=== PATIENT | male | born 1950 | race Caucasian/White ===

== ENCOUNTER 2017-09-05 21:36 | Emergency (ER) | payer BC, MEDICARE ==
[2017-09-05 22:25] LABS: ABSOLUTE BASOPHILS # (AUTO) 0.1 10^3/uL (0.0-0.2); ABSOLUTE EOSINOPHILS # (AUTO) 0.3 10^3/uL (0.0-0.6); ABSOLUTE LYMPHOCYTES (AUTO) 1.8 10^3/uL (0.5-4.7); ABSOLUTE MONOCYTES (AUTO) 1.7 10^3/uL (0.1-1.4); ABSOLUTE NEUT (AUTO) 5.6 10^3/uL (1.7-8.2); EOSINOPHILS % (AUTO) 2.9 % (0-6); HEMATOCRIT 41.8 % (37.9-51.0); HEMOGLOBIN 14.1 g/dL (13.5-17.0); MEAN CORPUSCULAR HEMOGLOBIN 29.9 pg (27.0-33.4); MEAN CORPUSCULAR HGB CONC 33.7 g/dL (32.0-36.0); MEAN CORPUSCULAR VOLUME 89 fl (80-97); MONOCYTES % (AUTO) 18.2 % (3-13); PLATELET COUNT 211 10^3/uL (150-450); RED BLOOD COUNT 4.71 10^6/uL (4.35-5.55); RED CELL DISTRIBUTION WIDTH 15.8 % (11.5-14.0); SEGMENTED NEUTROPHILS % (AUTO) 58.9 % (42-78); TOTAL CELLS COUNTED % (AUTO) 100 %; WHITE BLOOD COUNT 9.5 10^3/uL (4.0-10.5)
[2017-09-05 22:40] LABS: ALANINE AMINOTRANSFERASE 45 U/L (21-72); ALBUMIN 4.2 g/dL (3.5-5.0); ALKALINE PHOSPHATASE 141 U/L (38-126); ANION GAP 11 (5-19); ASPARTATE AMINO TRANSFERASE 32 U/L (17-59); BILIRUBIN,DIRECT 0.1 mg/dL (0.0-0.4); BILIRUBIN,TOTAL 0.3 mg/dL (0.2-1.3); BLOOD UREA NITROGEN 22 mg/dL (7-20); CALCIUM 9.5 mg/dL (8.4-10.2); CARBON DIOXIDE 23 mmol/L (22-30); CHLORIDE 102 mmol/L (98-107); CREATINE KINASE 138 U/L (55-170); GLUCOSE 137 mg/dL (75-110); POTASSIUM 4.1 mmol/L (3.6-5.0); TOTAL PROTEIN 6.8 g/dL (6.3-8.2)
--- NOTE | 2017-09-05 22:41 | RADIOLOGY REPORT (SQ) ---
EXAM DESCRIPTION: CHEST PA/LAT COMPLETED DATE/TIME: 09/05/2017 10:32 pm REASON FOR STUDY: cough COMPARISON: None. EXAM PARAMETERS: NUMBER OF VIEWS: two views TECHNIQUE: Digital Frontal and Lateral radiographic views of the chest acquired. RADIATION DOSE: NA LIMITATIONS: none FINDINGS: LUNGS AND PLEURA: No consolidation, pneumothorax or pleural effusion. MEDIASTINUM AND HILAR STRUCTURES: No masses or contour abnormalities. HEART AND VASCULAR STRUCTURES: Heart normal size. No evidence for failure. BONES: No acute findings. Suture anchors are noted right shoulder. HARDWARE: None in the chest. IMPRESSION: No acute radiographic finding in the chest. TECHNICAL DOCUMENTATION: JOB ID: [id number] 2010 [employer]- All Rights Reserved
[2017-09-05 22:54] LABS: CREATINE KINASE MB 0.86 ng/mL (<4.55); TROPONIN I < 0.012 ng/mL
--- NOTE | 2017-09-05 23:20 | ER Document Report ---
ED General - General Chief Complaint: Passed Out Prior to Arrival Stated Complaint: COUGH Time Seen by Provider: 09/05/17 23:06 Notes: Patient is a 67-year-old male who presents with complaint of syncopal episode occurred while coughing. Patient says he was coughing and having severe coughing fit where he passed out and says he started having tremor into his hands. She says this lasts only 5 seconds. She said when he woke up he was not confused and was back to his normal self. No history of seizures. Patient has had a cough for several day's. He says it is nonproductive. He says he has not had any significant congestion. He is unsure if he has been wheezing. Patient's does mention that he has had an intermittent cough now for approximately a year. Patient is on lisinopril. He is a former smoker. He quit smoking proximally 15-20 years ago. He says he does not think he has had a fever. He said he checked his temperature earlier in his temp might of been 100 at home. He did see his doctor 2 days ago. He received a pneumonia shot. No vomiting. No diarrhea. He does have a mild headache. No other complaints at this time. TRAVEL OUTSIDE OF THE [place] IN LAST 30 DAYS: No - Related Data Allergies/Adverse Reactions: No Known Allergies Allergy (Verified 09/05/17 22:01) Past Medical History - Social History Smoking Status: Former Smoker Frequency of alcohol use: None Drug Abuse: None Family History: Reviewed & Not Pertinent Patient has suicidal ideation: No Patient has homicidal ideation: No - Past Medical History Cardiac Medical History: Reports: Hx Hypercholesterolemia, Hx Hypertension - LISINOPRIL Denies: Hx Heart Attack Pulmonary Medical History: Denies: Hx Asthma Neurological Medical History: Denies: Hx Cerebrovascular Accident, Hx Seizures Renal/ Medical History: Denies: Hx Peritoneal Dialysis GI Medical History: Denies: Hx Hepatitis, Hx Hiatal Hernia, Hx Ulcer Infectious Medical History: Denies: Hx Hepatitis Past Surgical History: Denies: Hx Open Heart Surgery, Hx Pacemaker - Immunizations Hx Diphtheria, Pertussis, Tetanus Vaccination: No Review of Systems - Review of Systems Notes: My Normal Review Basic REVIEW OF SYSTEMS: CONSTITUTIONAL : Coughing type illness. EENT: Denies eye, ear, throat, or mouth pain or symptoms. Denies nasal or sinus congestion. CARDIOVASCULAR: Denies chest pain. RESPIRATORY: Current coughing. GASTROINTESTINAL: Denies abdominal pain. Denies nausea, vomiting, or diarrhea. Denies constipation. Last BM: MUSCULOSKELETAL: Denies neck or back pain or joint pain or swelling. SKIN: Denies rash or skin lesions. NEUROLOGICAL: Equal episode mild headache. Denies weakness or paralysis or loss of use of either side. Denies problems with gait or speech. Denies sensory or motor loss. ALL OTHER SYSTEMS REVIEWED AND NEGATIVE. Physical Exam - Vital signs Vitals: Temp Pulse Resp BP Pulse Ox 98.7 F 80 20 153/91 H 94 09/05/17 21:37 09/05/17 21:37 09/05/17 21:37 09/05/17 21:37 09/05/17 21:37 - Notes Notes: General Appearance: Well nourished, alert, cooperative, no acute distress, no obvious discomfort. Well-appearing. Vitals: reviewed, See vital signs table. Head: no swelling or tenderness to the head Eyes: PERRL, EOMI, Conjuctiva clear Mouth: No decreasd moisture Throat: No tonsillar inflammation, No airway obstruction, No lymphadenopathy Neck: Supple, no neck tenderness, No thyromegaly Lungs: No wheezing, No rales, No rhonci, No accessory muscle use, good air exchange bilaterally. Heart: Normal rate, Regular rythm, No murmur, no rub Chest wall: Mild pain to palpation over the lower ribs which patient says hurts from coughing. Abdomen: Normal BS, soft, No rigidity, No abdominal tenderness, No guarding, no rebound, no abdominal masses, no organomegaly Extremities: strength 5/5 in all extremities, good pulses in all extremities, no swelling or tenderness in the extremities, no edema. Skin: warm, dry, appropriate color, no rash Neuro: speech clear, oriented x 3, normal affect, responds appropriately to questions. Renal nerves II through XII are intact. Distal sensation intact. Patient moves all extremities without difficulty. Course - Re-evaluation Re-evalutation: 09/06/17 01:17 Patient's repeat EKG shows that he is in sinus rhythm. I talked the patient is about him going into atrial flutter. Patient says he thinks has been in it once before. Patient has no chest pain. He did not ever have any chest pain during this process. His cardiac enzymes are negative. Clinically looks very well. His history and symptoms seem very consistent with that of post tussive syncope. I suspect he probably does have some underlying bronchitis currently. I will place him on prednisone and given albuterol inhaler; however , also discussed with him that I think his recurrent coughing is probably also potentially related to lisinopril. I suspect this because the patient has been having this recurrent coughing fits for approximately 1 year. He is currently on lisinopril with hydrochlorothiazide. I will prescribe hydrochlorothiazide alone and have him stop lisinopril. I informed him to keep a log of his blood pressures over the next week after stopping lisinopril to make sure that something does not have to be added and replaced of this. Informed him he must return to ER immediately if he has chest pain, difficulty breathing, recurrent episode of passing out, or if she feels unwell. I encouraged him follow-up with his doctor on Sunday for reevaluation. Patient and agree with plan and he will be discharged home. Dictation of this chart was performed using voice recognition software; therefore, there may be some unintended grammatical errors. - Vital Signs Vital signs: Temp Pulse Resp BP Pulse Ox 98.7 F 92 18 128/76 H 95 09/05/17 21:45 09/05/17 21:45 09/05/17 23:09 09/05/17 23:08 09/05/17 23:09 - Laboratory Result Diagrams: 09/05/17 22:10 09/05/17 22:10 Laboratory results interpreted by me: 09/05/17 09/05/17 22:10 22:10 RDW 15.8 H Monocytes % 18.2 H Absolute Monocytes 1.7 H Sodium 136.0 L BUN 22 H Glucose 137 H Alkaline Phosphatase 141 H - EKG Interpretation by Me Additional EKG results interpreted by me: 09/05/17 23:20 EKG is reviewed and interpreted by me. EKG shows atrial flutter with rate of [address] segment elevation or depression. No ischemic T-wave inversions. There is duration is within normal range. QTc interval interval is prolonged. No old EKG available for comparison. 09/05/17 23:37 EKG is reviewed and interpreted by me. This is patient's second EKG. EKG shows sinus rhythm with rate of [address] segment elevation or depression. No ischemic T-wave inversions. VT interval, QRS duration, QTc intervals are within normal range. Discharge - Discharge Clinical Impression: Post-tussive syncope, Atrial flutter, paroxysmal, Cough Condition: Good Disposition: HOME, SELF-CARE Additional Instructions: Please stop taking the Lisinopril. This may be contributing to your cough. Please start taking the Hydrochlorothiazide alone. Please keep a log of your blood pressures to make sure your blood pressure is not running high after stopping the Lisinopril. Please follow up with your doctor on Sunday for reevaluation. Please return to [facility] ER immediately if you develop fevers, difficulty breathing, vomiting, recurrent passing out, or feel unwell. Do not use the inhaler more than once every 4 hours for wheezing or recurrent coughing. Return to the ER if you have wheezing and difficulty breathing. Prescriptions: Hydrochlorothiazide 25 mg PO DAILY #30 tablet Prednisone [Deltasone 20 mg Tablet] 2 tab PO DAILY 4 Days tablet Referrals: JAYSHREE MULLIGAN MD [Primary Care Provider] - 09/07/17
[2017-09-06] MEDS ORDERED: ACETAMINOPHEN 325 MG TABLET PO ONE (00:39)
--- NOTE | 2017-09-06 00:43 | RADIOLOGY REPORT (SQ) ---
EXAM DESCRIPTION: CT HEAD WITHOUT COMPLETED DATE/TIME: 09/06/2017 12:25 am REASON FOR STUDY: syncope COMPARISON: None. TECHNIQUE: Axial images acquired through the brain without intravenous contrast. Images reviewed wi th bone, brain and subdural windows. Images stored on PACS. All CT scanners at this facility use dose modulation, iterative reconstruction, and/or weight based d osing when appropriate to reduce radiation dose to as low as reasonably achievable (ALARA). [facility]: Dose Right [facility]: CareDose [facility]: Dose Right [facility]: Teradose 4D [facility]: Smart PlanHQ RADIATION DOSE: CT Rad equipment meets quality standard of care and radiation dose reduction techniq ues were employed. CTDIvol: 64.6 mGy. DLP: 1292 mGy-cm. mGy. LIMITATIONS: None. FINDINGS: VENTRICLES: Normal size and contour. CEREBRUM: No mass effect. No hemorrhage. No midline shift. Normal berkowitz/white matter differentiatio n. No evidence for acute territorial infarction. CEREBELLUM: No mass effect. No hemorrhage. No alteration of density. No evidence for acute infarct ion. EXTRAAXIAL SPACES: No fluid collections. ORBITS AND GLOBE: Symmetrical contour of the globes. CALVARIUM: No depressed skull fracture. PARANASAL SINUSES: No air-fluid level. Mild mucosal thickening at the bilateral maxillary sinuses an d ethmoid air cells. SOFT TISSUES: No hematoma. IMPRESSION: No acute intracranial hemorrhage or acute territorial infarct. EVIDENCE OF ACUTE STROKE: NO. COMMENT: Quality ID # [id number]: Final reports with documentation of one or more dose reduction techniques (e.g., Automated exposure control, adjustment of the mA and/or kV according to patient size, use of iterative reconstruction technique) TECHNICAL DOCUMENTATION: JOB ID: [id number] [place]-[id number] 2010 [employer]- All Rights Reserved
[2017-09-06] MEDS ORDERED: ALBUTEROL SULFATE HFA (90 MCG/PUFF) 8 GM MDI (1 MDI/ER DISP) IH ONE (01:21)
[2017-09-06] MEDS ORDERED: PREDNISONE 20 MG TABLET PO ONE (01:21)
[2017-09-06 01:46] VITALS: BP 126/78
--- NOTE | 2017-09-06 07:26 | EKG REPORT ---
SEVERITY:- NORMAL ECG - SINUS RHYTHM : Confirmed by: Rocael Edmonds MD 06-Sep-2017 07:25:46
--- NOTE | 2017-09-06 07:27 | EKG REPORT ---
SEVERITY:- ABNORMAL ECG - ATRIAL FLUTTER, A-RATE [address] DEPRESSION, DIMA LATERAL LEADS PROLONGED QT INTERVAL : Confirmed by: Rocael Edmonds MD 06-Sep-2017 07:26:35
== END 2017-09-06 01:46 | disposition home or self-care (01) ==
LOC: ER 21:36
DX: R55 Syncope and collapse (principal); R05 Cough; I48.92 Unspecified atrial flutter; R51 Headache; I10 Essential (primary) hypertension; Z79.899 Other long term (current) drug therapy; Z87.891 Personal history of nicotine dependence
CPT/HCPCS: 93005; 99284; 36415; 82553; 82550; 85025; 80053; 84484; 71046; 70450; 93010; A9270 ×2; J3490; J7512

== ENCOUNTER 2017-09-13 12:40 | Inpatient (IN) | payer MEDICARE, OTHER ==
[2017-09-13] MEDS ORDERED: IPRATROPIUM/ALBUTEROL 0.5-2.5 MG/3 ML AMPUL NEB ONE (13:30)
--- NOTE | 2017-09-13 13:31 | ER Document Report ---
ED Medical Screen (RME) - General Chief Complaint: Chest Pain Stated Complaint: CHEST PAIN Time Seen by Provider: 09/13/17 13:29 Mode of Arrival: Ambulatory Information source: Patient Notes: 67 yr old male hx of sleep apnea, cough of 2-3 week duration presents with complaints of chest tightness ,sob. pt notes symptoms worsen at night and ambulation I have greeted and performed a rapid initial assessment of this patient. A comprehensive ED assessment and evaluation of the patient, analysis of test results and completion of the medical decision making process will be conducted by additional ED providers. PHYSICAL EXAMINATION: GENERAL: Well-appearing, well-nourished and in no acute distress. HEAD: Atraumatic, normocephalic. EYES: Pupils equal round extraocular movements intact, conjunctiva are normal. ENT: Nares patent NECK: Normal range of motion LUNGS: No respiratory distress Musculoskeletal: Normal range of motion NEUROLOGICAL: Normal speech, normal gait. PSYCH: Normal mood, normal affect. SKIN: Warm, Dry, normal turgor, no rashes or lesions noted. TRAVEL OUTSIDE OF THE [place] IN LAST 30 DAYS: No - Related Data Allergies/Adverse Reactions: No Known Allergies Allergy (Verified 09/13/17 12:42) Past Medical History - Social History Chew tobacco use (# tins/day): No Frequency of alcohol use: None Drug Abuse: None - Past Medical History Cardiac Medical History: Reports: Hx Hypercholesterolemia, Hx Hypertension Denies: Hx Heart Attack Pulmonary Medical History: Denies: Hx Asthma Neurological Medical History: Denies: Hx Cerebrovascular Accident, Hx Seizures Renal/ Medical History: Denies: Hx Peritoneal Dialysis GI Medical History: Denies: Hx Hepatitis, Hx Hiatal Hernia, Hx Ulcer Infectious Medical History: Denies: Hx Hepatitis Past Surgical History: Reports: Hx Orthopedic Surgery. Denies: Hx Open Heart Surgery, Hx Pacemaker - Immunizations Hx Diphtheria, Pertussis, Tetanus Vaccination: No Physical Exam - Vital signs Vitals: Temp Pulse Resp BP Pulse Ox 98.0 F 42 L 16 141/73 H 94 09/13/17 12:58 09/13/17 12:58 09/13/17 12:58 09/13/17 12:58 09/13/17 12:58 Course - Vital Signs Vital signs: Temp Pulse Resp BP Pulse Ox 98.0 F 42 L 16 141/73 H 94 09/13/17 12:58 09/13/17 12:58 09/13/17 12:58 09/13/17 12:58 09/13/17 12:58
[2017-09-13 14:11] LABS: HEMATOCRIT 41.8 % (37.9-51.0); HEMOGLOBIN 13.9 g/dL (13.5-17.0); MEAN CORPUSCULAR HEMOGLOBIN 29.5 pg (27.0-33.4); MEAN CORPUSCULAR HGB CONC 33.3 g/dL (32.0-36.0); MEAN CORPUSCULAR VOLUME 89 fl (80-97); PLATELET COUNT 225 10^3/uL (150-450); RED BLOOD COUNT 4.71 10^6/uL (4.35-5.55); RED CELL DISTRIBUTION WIDTH 15.8 % (11.5-14.0); WHITE BLOOD COUNT 11.1 10^3/uL (4.0-10.5)
--- NOTE | 2017-09-13 14:14 | RADIOLOGY REPORT (SQ) ---
EXAM DESCRIPTION: CHEST PA/LAT COMPLETED DATE/TIME: 09/13/2017 1:43 pm REASON FOR STUDY: sob, chest tight cough COMPARISON: 09/05/2017 EXAM PARAMETERS: NUMBER OF VIEWS: two views TECHNIQUE: Digital Frontal and Lateral radiographic views of the chest acquired. RADIATION DOSE: NA LIMITATIONS: none FINDINGS: LUNGS AND PLEURA: No opacities, masses or pneumothorax. No pleural effusion. MEDIASTINUM AND HILAR STRUCTURES: No masses or contour abnormalities. HEART AND VASCULAR STRUCTURES: Heart normal size. No evidence for failure. BONES: No acute findings. HARDWARE: None in the chest. OTHER: Orthopedic hardware is identified overlying the humeral heads bilaterally. IMPRESSION: NO SIGNIFICANT RADIOGRAPHIC FINDING IN THE CHEST. TECHNICAL DOCUMENTATION: JOB ID: [id number] [employer]- All Rights Reserved
[2017-09-13 14:36] LABS: ALANINE AMINOTRANSFERASE 47 U/L (21-72); ALKALINE PHOSPHATASE 124 U/L (38-126); ANION GAP 9 (5-19); ASPARTATE AMINO TRANSFERASE 30 U/L (17-59); BILIRUBIN,DIRECT 0.2 mg/dL (0.0-0.4); BILIRUBIN,TOTAL 0.6 mg/dL (0.2-1.3); BLOOD UREA NITROGEN 21 mg/dL (7-20); CALCIUM 9.3 mg/dL (8.4-10.2); CARBON DIOXIDE 26 mmol/L (22-30); CHLORIDE 104 mmol/L (98-107); CREATINE KINASE 94 U/L (55-170); GLUCOSE 103 mg/dL (75-110); POTASSIUM 4.5 mmol/L (3.6-5.0); SODIUM 139.4 mmol/L (137-145); TOTAL PROTEIN 6.4 g/dL (6.3-8.2)
[2017-09-13 14:40] LABS: ABSOLUTE LYMPHOCYTES# (MANUAL) 3.8 10^3/uL (0.5-4.7); ABSOLUTE MONOCYTES # (MANUAL) 0.8 10^3/uL (0.1-1.4); ABSOLUTE NEUTROPHILS# (MANUAL) 6.4 10^3/uL (1.7-8.2); BAND NEUTROPHILS % (MANUAL) 1 % (3-5); BASOPHILS % (MANUAL) 0 % (0-2); EOSINOPHILS % (MANUAL) 1 % (0-6); LYMPHOCYTES % (MANUAL) 28 % (13-45); MONOCYTES % (MANUAL) 7 % (3-13); SEGMENTED NEUTROPHILS % (MAN) 57 % (42-78); TOTAL CELLS COUNTED 100; TOXIC GRANULATION 1+; TOXIC VACUOLATION PRESENT
[2017-09-13 14:41] LABS: ANISOCYTOSIS SLIGHT; OVALOCYTES SLIGHT; PLATELET COMMENT ADEQUATE; POIKILOCYTOSIS SLIGHT
[2017-09-13 14:48] LABS: CREATINE KINASE MB 1.02 ng/mL (<4.55)
[2017-09-13 14:49] LABS: TROPONIN I < 0.012 ng/mL
--- NOTE | 2017-09-13 16:06 | RADIOLOGY REPORT (SQ) ---
EXAM DESCRIPTION: CTA CHEST COMPLETED DATE/TIME: 09/13/2017 3:55 pm REASON FOR STUDY: sob/hypoxic COMPARISON: None. TECHNIQUE: CT scan of the chest performed using helical scanning technique with dynamic intravenous contrast injection. Images reviewed with lung, soft tissue and bone windows. Reconstructed coronal and sagittal MPR images reviewed. Additional 3 dimensional post-processing performed to develop Maximal Intensity Projection images (HI P). All images stored on PACS. All CT scanners at this facility use dose modulation, iterative reconstruction, and/or weight based d osing when appropriate to reduce radiation dose to as low as reasonably achievable (ALARA). [facility]: Dose Right [facility]: CareDose [facility]: Dose Right [facility]: Teradose 4D [facility]: [employer] CONTRAST TYPE AND DOSE: contrast/concentration: Isovue 370.00 mg/ml; Total Contrast Delivered: 78.0 ml; Total Saline Delivered: 70.0 ml Contrast bolus optimized for the pulmonary arteries. Not diagnostic for the aorta. RENAL FUNCTION: GFR > 60. RADIATION DOSE: CT Rad equipment meets quality standard of care and radiation dose reduction techniq ues were employed. CTDIvol: 19.8 - 30.4 mGy. DLP: 1119 mGy-cm. . LIMITATIONS: None. FINDINGS: LUNGS AND PLEURA: No masses, infiltrates, pneumothorax. No pleural effusions, calcificati ons. AORTA AND GREAT VESSELS: No aneurysm. Contrast bolus not optimized for the aorta. HEART: No pericardial effusion. Cardiomegaly. Coronary arterial calcifications. PULMONARY ARTERIES: No emboli visualized in the main pulmonary arteries or the segmental branches. HILAR AND MEDIASTINAL STRUCTURES: No identified masses or abnormal nodes. HARDWARE: None in the chest. UPPER ABDOMEN: Hiatal hernia. THYROID AND OTHER SOFT TISSUES: No masses. No adenopathy. BONES: No acute or significant finding. 3D MIPS: Confirm above findings. OTHER: No other significant finding. IMPRESSION: No PE. No acute findings. COMMENT: Quality ID # [id number]: Final reports with documentation of one or more dose reduction techniques (e.g., Automated exposure control, adjustment of the mA and/or kV according to patient size, use of iterative reconstruction technique) TECHNICAL DOCUMENTATION: JOB ID: [id number]- All Rights Reserved
[2017-09-13] MEDS ORDERED: ASPIRIN 325 MG TABLET PO ONE (16:51)
--- NOTE | 2017-09-13 17:16 | ER Document Report ---
ED General - General Chief Complaint: Chest Pain Stated Complaint: CHEST PAIN Time Seen by Provider: 09/13/17 13:29 Mode of Arrival: Ambulatory Information source: Patient, Relative - spouse TRAVEL OUTSIDE OF THE [place] IN LAST 30 DAYS: No - HPI Patient complains to provider of: SOB Onset: Other - last night Onset/Duration: Gradual Exacerbated by: Walking, Coughing Relieved by: Denies Similar symptoms previously: No Recently seen / treated by doctor: No Notes: This is a 67-year-old gentleman who presents from home. He states that last night he was using his CPAP for his obstructive sleep apnea when he became short of breath. He states he ended up sleeping the night in the chair without his machine on him. He states this morning he woke up and felt okay shortly after lunch she began with chest pressure which was worse with walking or with shortness of breath. He describes the pain is central in his chest it is discomfort/pressure and not pain he states. States he has had a dry cough for some time. He was taken off lisinopril and placed on metoprolol however that does not seem to have helped his cough. Patient's last stress test was approximately 5 years ago he also has a history of hypertension high cholesterol diverticulitis and shoulder surgeries in the remote past. Patient' s primary medical doctor is Dr. kal Hussein. Patient states he quit tobacco 15 years ago. - Related Data Allergies/Adverse Reactions: No Known Allergies Allergy (Verified 09/13/17 12:42) Past Medical History - General Information source: Patient, Relative - Social History Smoking Status: Former Smoker Chew tobacco use (# tins/day): No Frequency of alcohol use: None Drug Abuse: None Lives with: Family Family History: Reviewed & Not Pertinent Patient has suicidal ideation: No Patient has homicidal ideation: No - Past Medical History Cardiac Medical History: Reports: Hx Hypercholesterolemia, Hx Hypertension Denies: Hx Heart Attack Pulmonary Medical History: Reports: None Denies: Hx Asthma EENT Medical History: Reports: None Neurological Medical History: Reports: None. Denies: Hx Cerebrovascular Accident, Hx Seizures Endocrine Medical History: Reports: None Renal/ Medical History: Reports: None. Denies: Hx Peritoneal Dialysis Malignancy Medical History: Reports None GI Medical History: Reports: None. Denies: Hx Hepatitis, Hx Hiatal Hernia, Hx Ulcer Musculoskeltal Medical History: Reports None Skin Medical History: Reports None Psychiatric Medical History: Reports: None Traumatic Medical History: Reports: None Infectious Medical History: Reports: None. Denies: Hx Hepatitis Past Surgical History: Reports: Hx Orthopedic Surgery. Denies: Hx Open Heart Surgery, Hx Pacemaker - Immunizations Hx Diphtheria, Pertussis, Tetanus Vaccination: No Review of Systems - Review of Systems Constitutional: No symptoms reported EENT: No symptoms reported Cardiovascular: See HPI Respiratory: See HPI Gastrointestinal: No symptoms reported Genitourinary: No symptoms reported Male Genitourinary: No symptoms reported Musculoskeletal: No symptoms reported Skin: No symptoms reported Hematologic/Lymphatic: No symptoms reported Neurological/Psychological: No symptoms reported Physical Exam - Vital signs Vitals: Temp Pulse Resp BP Pulse Ox 98.0 F 42 L 16 141/73 H 94 09/13/17 12:58 09/13/17 12:58 09/13/17 12:58 09/13/17 12:58 09/13/17 12:58 - Notes Notes: PHYSICAL EXAMINATION: GENERAL: Well-appearing, well-nourished and in no acute distress. HEAD: Atraumatic, normocephalic. EYES: Pupils equal round and reactive to light, extraocular movements intact, sclera anicteric, conjunctiva are normal. ENT: Nares patent, oropharynx clear without exudates. Moist mucous membranes. NECK: Normal range of motion, supple without lymphadenopathy. No JVD LUNGS: Breath sounds clear to auscultation bilaterally and equal. No wheezes rales or rhonchi. HEART: Regular rate and rhythm without murmurs ABDOMEN: Soft, nontender, nondistended abdomen. No guarding, no rebound. No masses appreciated. Musculoskeletal: Normal range of motion, no pitting or edema. No cyanosis. NEUROLOGICAL: Cranial nerves grossly intact. Normal speech, normal gait. Normal sensory, motor exams PSYCH: Normal mood, normal affect. SKIN: Warm, Dry, normal turgor, no rashes or lesions noted. Course - Re-evaluation Re-evalutation: 09/13/17 17:15 Labs- All tests 24 hr 09/13/17 09/13/17 09/13/17 13:50 13:50 13:50 WBC 11.1 H RBC 4.71 Hgb 13.9 Hct 41.8 MCV 89 MCH 29.5 MCHC 33.3 RDW 15.8 H Plt Count 225 Total Counted 100 Seg Neutrophils % Not Reportable Seg Neuts % (Manual) 57 Band Neutrophils % 1 L Lymphocytes % Not Reportable Lymphocytes % (Manual) 28 Atypical Lymphs % 6 Monocytes % Not Reportable Monocytes % (Manual) 7 Eosinophils % Not Reportable Eosinophils % (Manual) 1 Basophils % Not Reportable Basophils % (Manual) 0 Absolute Neutrophils Not Reportable Abs Neuts (Manual) 6.4 Absolute Lymphocytes Not Reportable Abs Lymphs (Manual) 3.8 Absolute Monocytes Not Reportable Abs Monocytes (Manual) 0.8 Absolute Eosinophils Not Reportable Absolute Eos (Manual) 0.1 Absolute Basophils Not Reportable Abs Basophils (Manual) 0.0 Toxic Granulation 1+ Toxic Vacuolation PRESENT Platelet Comment ADEQUATE Poikilocytosis SLIGHT Anisocytosis SLIGHT Ovalocytes SLIGHT D-Dimer 0.41 Sodium 139.4 Potassium 4.5 Chloride 104 Carbon Dioxide 26 Anion Gap 9 BUN 21 H Creatinine 1.48 H Est GFR ( Amer) 57 L Est GFR (Non-Af Amer) 47 L Glucose 103 Calcium 9.3 Total Bilirubin 0.6 Direct Bilirubin 0.2 Neonat Total Bilirubin Not Reportable Neonat Direct Bilirubin Not Reportable Neonat Indirect Bili Not Reportable AST 30 ALT 47 Alkaline Phosphatase 124 Creatine Kinase 94 CK-MB (CK-2) Troponin I NT-Pro-B Natriuret Pep Total Protein 6.4 Albumin 4.0 09/13/17 09/13/17 13:50 13:50 WBC RBC Hgb Hct MCV MCH MCHC RDW Plt Count Total Counted Seg Neutrophils % Seg Neuts % (Manual) Band Neutrophils % Lymphocytes % Lymphocytes % (Manual) Atypical Lymphs % Monocytes % Monocytes % (Manual) Eosinophils % Eosinophils % (Manual) Basophils % Basophils % (Manual) Absolute Neutrophils Abs Neuts (Manual) Absolute Lymphocytes Abs Lymphs (Manual) Absolute Monocytes Abs Monocytes (Manual) Absolute Eosinophils Absolute Eos (Manual) Absolute Basophils Abs Basophils (Manual) Toxic Granulation Toxic Vacuolation Platelet Comment Poikilocytosis Anisocytosis Ovalocytes D-Dimer Sodium Potassium Chloride Carbon Dioxide Anion Gap BUN Creatinine Est GFR ( Amer) Est GFR (Non-Af Amer) Glucose Calcium Total Bilirubin Direct Bilirubin Neonat Total Bilirubin Neonat Direct Bilirubin Neonat Indirect Bili AST ALT Alkaline Phosphatase Creatine Kinase CK-MB (CK-2) 1.02 Troponin I < 0.012 NT-Pro-B Natriuret Pep 392 Total Protein Albumin Chest X-Ray 02/08/18 13:29 IMPRESSION: NO SIGNIFICANT RADIOGRAPHIC FINDING IN THE CHEST. Chest/Abdomen CTA 09/13/17 15:11 IMPRESSION: No PE. No acute findings. 09/13/17 17:16 I did talk to the patient about his history of a flutter. He states that when he was in a flutter he could not determine that he was. But he did deny any feelings of palpitations or rapid heartbeat in the last few days. Patient and family were informed of results and disposition plan of observation. They are agreeable to the plan. I spoke with Dr. Powell her orders are being placed. - Vital Signs Vital signs: Temp Pulse Resp BP Pulse Ox 98.0 F 42 L 16 141/73 H 94 09/13/17 12:58 09/13/17 12:58 09/13/17 12:58 09/13/17 12:58 09/13/17 12:58 - Laboratory Result Diagrams: 09/13/17 13:50 09/13/17 13:50 Laboratory results interpreted by me: 09/13/17 09/13/17 13:50 13:50 WBC 11.1 H RDW 15.8 H Band Neutrophils % 1 L BUN 21 H Creatinine 1.48 H Est GFR ( Amer) 57 L Est GFR (Non-Af Amer) 47 L - EKG Interpretation by Me EKG shows normal: Sinus rhythm - 44 Rate: Normal When compared to previous EKG there are: No significant change Discharge - Discharge Clinical Impression: Chest pressure, Short of breath on exertion Condition: Stable Disposition: ADMITTED OBSERVATION Admitting Provider: Hospitalist - Dr. Kahn Unit Admitted: Telemetry Referrals: JAYSHREE MULLIGAN MD [Primary Care Provider] - Follow up as needed
[2017-09-13] MEDS ORDERED: ZOLPIDEM TARTRATE 5 MG TABLET PO PRN (17:18)
[2017-09-13] MEDS ORDERED: OXYCODONE-ACETAMINOPHEN 5-325 MG TABLET PO PRN (17:18)
[2017-09-13] MEDS ORDERED: ONDANSETRON HCL INJ/PF 4 MG/2 ML SDV IV PRN (17:18)
[2017-09-13] MEDS ORDERED: FUROSEMIDE INJ/PF 20 MG/2 ML SDV IV SCH (17:30)
--- NOTE | 2017-09-13 18:03 | PDOC H&P ---
History of Present Illness Admission Date/PCP: 09/13/17 17:28 JAYSHREE MULLIGAN MD Patient complains of: Shortness of breath for several days History of Present Illness: SANJEEV BROWN is a 67 year old maleCenter to emergency room accompanied by family members and complains of having shortness of breath for several days. Patient also has been complaining of nonproductive cough for some time. Today he experienced some chest pressure along with shortness of breath and prompted to come to be evaluated. Patient admits to some having a history of high blood pressure hyperlipidemia and sleep apnea. He states that he uses the CPAP machine faithfully at night.Due to comorbidities are service was contacted and prompted to admit for further management Past Medical History Cardiac Medical History: Reports: Hyperlipidema, Hypertension Denies: Myocardial Infarction Pulmonary Medical History: Reports: None, Sleep Apnea Denies: Asthma EENT Medical History: Reports: None Neurological Medical History: Reports: None Denies: Seizures Endocrine Medical History: Reports: None Renal/ Medical History: Reports: None Malignancy Medical History: Reports: None GI Medical History: Reports: None Denies: Hepatitis, Hiatal Hernia Musculoskeltal Medical History: Reports: None Skin Medical History: Reports: None Psychiatric Medical History: Reports: None Traumatic Medical History: Reports: None Hematology: Denies: Anemia, Sickle Cell Disease Infectious Medical History: Reports: None Past Surgical History Past Surgical History: Reports: Orthopedic Surgery Denies: Pacemaker Social History Information Source: Patient Lives with: Family Smoking Status: Former Smoker Frequency of Alcohol Use: None Hx Recreational Drug Use: No Drugs: None Hx Prescription Drug Abuse: No - Advance Directive Resuscitation Status: Full Code Family History Family History: Hypertension Parental Family History Reviewed: Yes Children Family History Reviewed: Yes Sibling(s) Family History Reviewed.: Yes Medication/Allergy Home Medications: Atorvastatin Calcium [Lipitor 10 Mg Tablet] 10 mg PO QHS 07/12/11 Lisinopril [Prinivil 5 Mg Tablet] 5 mg PO DAILY 07/12/11 Hydrochlorothiazide 25 mg PO DAILY #30 tablet 09/06/17 Prednisone [Deltasone 20 mg Tablet] 2 tab PO DAILY 4 Days tablet 09/06/17 Allergies/Adverse Reactions: No Known Allergies Allergy (Verified 09/13/17 12:42) Review of Systems Constitutional: ABSENT: fatigue, fever(s), headache(s), weakness Eyes: ABSENT: visual disturbances Ears: ABSENT: hearing changes Nose, Mouth, and Throat: ABSENT: mouth pain, sore throat Cardiovascular: PRESENT: chest pain, dyspnea on exertion. ABSENT: edema Respiratory: PRESENT: cough, dyspnea Gastrointestinal: ABSENT: abdominal pain, nausea, vomiting Genitourinary: ABSENT: dysuria, hematuria Musculoskeletal: ABSENT: deformity, joint swelling Neurological: ABSENT: dizziness, weakness Psychiatric: ABSENT: anxiety Endocrine: ABSENT: polyphagia, polyuria Physical Exam Vital Signs: Temp Pulse Resp BP Pulse Ox 98.0 F 42 L 16 141/73 H 94 09/13/17 12:58 09/13/17 12:58 09/13/17 12:58 09/13/17 12:58 09/13/17 12:58 General appearance: PRESENT: cooperative, morbidly obese Head exam: PRESENT: atraumatic, normocephalic Eye exam: PRESENT: conjunctiva pink, EOMI, PERRLA Ear exam: PRESENT: normal external ear exam, TM's normal bilaterally Mouth exam: PRESENT: moist, neck supple Neck exam: PRESENT: full ROM. ABSENT: JVD, lymphadenopathy, tenderness Respiratory exam: PRESENT: clear to auscultation amor, decreased breath sounds Cardiovascular exam: PRESENT: bradycardia. ABSENT: diastolic murmur, RRR, systolic murmur Vascular exam: PRESENT: normal capillary refill GI/Abdominal exam: PRESENT: normal bowel sounds, soft. ABSENT: tenderness Extremities exam: PRESENT: full ROM, pedal edema. ABSENT: clubbing Musculoskeletal exam: PRESENT: ambulatory Neurological exam: PRESENT: alert, awake, oriented to person, oriented to place , oriented to time, oriented to situation, CN II-XII grossly intact Psychiatric exam: PRESENT: appropriate affect, normal mood Skin exam: PRESENT: intact, normal color Results Impressions: Chest X-Ray 09/13/17 13:29 IMPRESSION: NO SIGNIFICANT RADIOGRAPHIC FINDING IN THE CHEST. Chest/Abdomen CTA 09/13/17 15:11 IMPRESSION: No PE. No acute findings. 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 Patient will be placed on Lasix IV. Will order echocardiogram. Likely may relate to diastolic dysfunction (2) Chest pain Qualifiers: Chest pain type: chest pain on breathing Qualified Code(s): R07.1 - Chest pain on breathing; R07.81 - Pleurodynia Is this a current diagnosis for this admission?: Yes Plan: May relate due to heart failure. Patient will be admitted to telemetry unit. Troponin will be trended and will order nuclear stress test. Patient will be placed on baby aspirin and Lipitor (3) Cough Is this a current diagnosis for this admission?: Yes Plan: Likely the cough may relate to congestive heart failure (4) HTN (hypertension) Qualifiers: Hypertension type: essential hypertension Qualified Code(s): I10 - Essential (primary) hypertension Is this a current diagnosis for this admission?: Yes Plan: Will place patient on ARB (5) Morbid obesity with BMI of 45.0-49.9, adult Is this a current diagnosis for this admission?: Yes Plan: Patient had been advised about lifestyle modifications is will help out also with sleep apnea (6) Sleep apnea Qualifiers: Sleep apnea type: obstructive Qualified Code(s): G47.33 - Obstructive sleep apnea (adult) (pediatric) Is this a current diagnosis for this admission?: Yes Plan: Patient will be allowed to use home CPAP. Recommended to have singh recalibrated to see us at this may need to be changed - Time Time Spent: 50 to 70 Minutes Medications reviewed and adjusted accordingly: Yes Anticipated discharge: Home Within: within 24 hours - Inpatient Certification Based on my medical assessment, after consideration of the patient's comorbidities, presenting symptoms, or acuity I expect that the services needed warrant INPATIENT care.: No I certify that my determination is in accordance with my understanding of Medicare's requirements for reasonable and necessary INPATIENT services [42 CFR 412.3e].: Yes Medical Necessity: Need Close Monitoring Due to Risk of Patient Decompensation, Need For Continuous Telemetry Monitoring
[2017-09-13] MEDS ORDERED: AMLODIPINE BESYLATE 2.5 MG TABLET PO ONE (18:30)
[2017-09-13] MEDS ORDERED: LOSARTAN POTASSIUM 50 MG TABLET PO ONE (18:30)
[2017-09-13] MEDS: FUROSEMIDE INJ/PF 40 MG/4 ML SDV IV SCH (19:38)
[2017-09-13] MEDS: ATORVASTATIN CALCIUM 80 MG TABLET PO SCH (21:17)
[2017-09-13] MEDS: HEPARIN SOD (PORCINE) 5,000 UNIT/ML 1 ML SYRINGE SUBCUT SCH (21:18)
[2017-09-14 04:33] LABS: ABSOLUTE BASOPHILS # (AUTO) 0.1 10^3/uL (0.0-0.2); ABSOLUTE EOSINOPHILS # (AUTO) 0.2 10^3/uL (0.0-0.6); ABSOLUTE LYMPHOCYTES (AUTO) 3.4 10^3/uL (0.5-4.7); ABSOLUTE MONOCYTES (AUTO) 1.1 10^3/uL (0.1-1.4); ABSOLUTE NEUT (AUTO) 5.9 10^3/uL (1.7-8.2); BASOPHILS % (AUTO) 0.6 % (0-2); EOSINOPHILS % (AUTO) 2.3 % (0-6); HEMOGLOBIN 13.9 g/dL (13.5-17.0); LYMPHOCYTES % (AUTO) 31.7 % (13-45); MEAN CORPUSCULAR HEMOGLOBIN 29.8 pg (27.0-33.4); MEAN CORPUSCULAR HGB CONC 33.9 g/dL (32.0-36.0); MEAN CORPUSCULAR VOLUME 88 fl (80-97); MONOCYTES % (AUTO) 10.4 % (3-13); PLATELET COUNT 204 10^3/uL (150-450); RED BLOOD COUNT 4.67 10^6/uL (4.35-5.55); RED CELL DISTRIBUTION WIDTH 15.9 % (11.5-14.0); TOTAL CELLS COUNTED % (AUTO) 100 %; WHITE BLOOD COUNT 10.7 10^3/uL (4.0-10.5)
[2017-09-14 04:45] LABS: ANION GAP 11 (5-19); BLOOD UREA NITROGEN 22 mg/dL (7-20); CALCIUM 9.3 mg/dL (8.4-10.2); CARBON DIOXIDE 24 mmol/L (22-30); CHLORIDE 104 mmol/L (98-107); GLUCOSE 112 mg/dL (75-110); SODIUM 138.5 mmol/L (137-145)
[2017-09-14] MEDS: FUROSEMIDE INJ/PF 40 MG/4 ML SDV IV SCH (06:20)
[2017-09-14] MEDS: HEPARIN SOD (PORCINE) 5,000 UNIT/ML 1 ML SYRINGE SUBCUT SCH ×3 (06:24→22:07)
[2017-09-14] MEDS: AMLODIPINE BESYLATE 2.5 MG TABLET PO SCH ×2 (08:46→08:47)
[2017-09-14] MEDS: LOSARTAN POTASSIUM 50 MG TABLET PO SCH ×2 (08:46→08:47)
[2017-09-14] MEDS: DOCUSATE SODIUM 100 MG CAPSULE PO SCH (09:10)
[2017-09-14] MEDS: ASPIRIN 81 MG TABLET, ENT COATED PO SCH (09:11)
[2017-09-14] MEDS ORDERED: ASPIRIN 325 MG TABLET PO SCH (10:00)
--- NOTE | 2017-09-14 10:02 | EKG REPORT ---
SEVERITY:- ABNORMAL ECG - SINUS BRADYCARDIA POSTERIOR INFARCT : Confirmed by: Azra Olivo 14-Sep-2017 10:01:17
[2017-09-14] MEDS: ACETAMINOPHEN 325 MG TABLET PO PRN ×2 (11:20→19:28)
--- NOTE | 2017-09-14 13:16 | XCELERA REPORT ---
[address] [address] Transthoracic Echocardiogram Report Name: SANJEEV BROWN Age: 67 yrs Gender: Male : 1950 Patient Status: Inpatient Patient Location: [address] [place] [address] Study Date: 09/14/2017 11:39 AM Height: 70 in Weight: 248 lb BSA: 2.3 m2 Procedure: A complete two-dimensional transthoracic echocardiogram was performed (2D, M-mode, spectral and color flow Doppler). The study was technically difficult with many images being suboptimal in quality. Reason For Study: dyspnea Ordering Physician: ESTEPHANIE SCHAEFER Performed By: Mile Rod Interpretation Summary The study was technically difficult with many images being suboptimal in quality. The left ventricular ejection fraction is preserved. There is mild concentric left ventricular hypertrophy. The left ventricle is grossly normal size. Doppler measurements suggest pseudonormalized left ventricular relaxation, which is associated with grade II/IV or mild to moderate diastolic dysfunction Wall motion cannot be accurately commented on, but no definite regional wall motion abnormalities noted. The right ventricle is mildly dilated. The right ventricular systolic function is normal. The right atrium is mildly dilated. The left atrial size is normal. There is no mitral valve stenosis. There is no mitral regurgitation noted. There is no aortic valve stenosis No aortic regurgitation is present. There is a trace or physiologic amount of tricuspid regurgitation Tricuspid regurgitation jet envelope not well defined to measure RV systolic pressure accurately. The aortic root is not well visualized. The inferior vena cava was not well visualized There is no pericardial effusion. Consider additional methods to assess LVEF such as MUGA scan, CTA heart, cardiac MRI, FLOR, etc. if clinically indicated. MMode/2D Measurements & Calculations RVDd: 3.3 cm LVIDd: 6.4 cm FS: 38.3 % Ao root diam: 3.3 cm IVSd: 1.4 cm LVIDs: 3.9 cm EDV(Teich): 206.9 ml LVPWd: 1.4 cm ESV(Teich): 67.3 ml Ao root area: 8.6 cm2 EF(Teich): 67.5 % LA dimension: 3.6 cm Doppler Measurements & Calculations MV E max alec: MV P1/2t max alec: Ao V2 max: LV V1 max P.7 cm/sec 59.7 cm/sec 128.6 cm/sec 3.4 mmHg MV A max alec: MV P1/2t: 99.0 msec Ao max PG: LV V1 max: 56.8 cm/sec 6.6 mmHg 92.8 cm/sec MV E/A: 1.0 MVA(P1/2t): 2.2 cm2 MV dec slope: 176.8 cm/sec2 TR max alec: 214.5 cm/sec TR max P.4 mmHg Left Ventricle The left ventricle is grossly normal size. There is mild concentric left ventricular hypertrophy. The left ventricular ejection fraction is preserved. Consider additional methods to assess LVEF such as MUGA scan, CTA heart, cardiac MRI, FLOR, etc. if clinically indicated. Doppler measurements suggest pseudonormalized left ventricular relaxation, which is associated with grade II/IV or mild to moderate diastolic dysfunction. Wall motion cannot be accurately commented on, but no definite regional wall motion abnormalities noted. Right Ventricle The right ventricle is mildly dilated. There is normal right ventricular wall thickness. The right ventricular systolic function is normal. Atria The right atrium is mildly dilated. The left atrial size is normal. Interarterial septum not well visualized and not well dopplered. Cannot comment on ASD/PFO presence. Mitral Valve The mitral valve is not well visualized. There is no mitral valve stenosis. There is no mitral regurgitation noted. Aortic Valve The aortic valve is not well visualized secondary to technical limitations. There is no aortic valve stenosis. No aortic regurgitation is present. Tricuspid Valve The tricuspid valve is not well visualized secondary to technical limitations. There is no tricuspid stenosis. There is a trace or physiologic amount of tricuspid regurgitation. Tricuspid regurgitation jet envelope not well defined to measure RV systolic pressure accurately. Pulmonic Valve The pulmonic valve is not well visualized. Great Vessels The aortic root is not well visualized. The inferior vena cava was not well visualized. Effusions There is no pericardial effusion. : ESTEPHANIE SCHAEFER > Azra Olivo
[2017-09-14] MEDS ORDERED: FUROSEMIDE INJ/PF 40 MG/4 ML SDV IV SCH (14:17)
--- NOTE | 2017-09-14 14:25 | PDOC PROGRESS REPORT ---
Subjective Progress Note for:: 09/14/17 Reason For Visit: CHEST PAIN Physical Exam Vital Signs: Temp Pulse Resp BP Pulse Ox 97.9 F 42 L 16 106/65 93 09/14/17 06:32 09/14/17 02:19 09/14/17 07:01 09/14/17 07:01 09/14/17 07:00 Intake & Output 09/13/17 09/14/17 09/15/17 06:59 06:59 06:59 Output Total 3080 Balance -3080 General appearance: PRESENT: cooperative, morbidly obese Head exam: PRESENT: atraumatic, normocephalic Eye exam: PRESENT: conjunctiva pink, EOMI, PERRLA Ear exam: PRESENT: normal external ear exam Mouth exam: PRESENT: moist, neck supple Neck exam: PRESENT: full ROM. ABSENT: JVD, lymphadenopathy Respiratory exam: PRESENT: clear to auscultation amor Cardiovascular exam: PRESENT: RRR. ABSENT: diastolic murmur, systolic murmur Vascular exam: PRESENT: normal capillary refill GI/Abdominal exam: PRESENT: normal bowel sounds, soft. ABSENT: tenderness Extremities exam: PRESENT: full ROM Musculoskeletal exam: PRESENT: ambulatory Neurological exam: PRESENT: alert, awake, oriented to person, oriented to place , oriented to time, oriented to situation, CN II-XII grossly intact Psychiatric exam: PRESENT: appropriate affect, normal mood Skin exam: PRESENT: intact, normal color Results Laboratory Results: 09/14/17 04:05 09/14/17 04:05 09/14/17 09/14/17 04:05 04:05 WBC 10.7 H RBC 4.67 Hgb 13.9 Hct 41.0 MCV 88 MCH 29.8 MCHC 33.9 RDW 15.9 H Plt Count 204 Seg Neutrophils % 55.0 Lymphocytes % 31.7 Monocytes % 10.4 Eosinophils % 2.3 Basophils % 0.6 Absolute Neutrophils 5.9 Absolute Lymphocytes 3.4 Absolute Monocytes 1.1 Absolute Eosinophils 0.2 Absolute Basophils 0.1 Sodium 138.5 Potassium 4.0 Chloride 104 Carbon Dioxide 24 Anion Gap 11 BUN 22 H Creatinine 1.07 Est GFR ( Amer) > 60 Est GFR (Non-Af Amer) > 60 Glucose 112 H Calcium 9.3 09/13/17 09/14/17 22:19 04:05 Troponin I < 0.012 < 0.012 Impressions: Chest X-Ray 09/13/17 13:29 IMPRESSION: NO SIGNIFICANT RADIOGRAPHIC FINDING IN THE CHEST. Chest/Abdomen CTA 09/13/17 15:11 IMPRESSION: No PE. No acute findings. Assessment & Plan - Diagnosis (1) Chest pain Qualifiers: Chest pain type: chest pain on breathing Qualified Code(s): R07.1 - Chest pain on breathing; R07.81 - Pleurodynia Is this a current diagnosis for this admission?: Yes Plan: Resolved and likely due to fluid overload. Nuclear stress test to be scheduled for morning (2) Cough Is this a current diagnosis for this admission?: Yes Plan: Likely the cough may relate to congestive heart failure. Resolved (3) HTN (hypertension) Qualifiers: Hypertension type: essential hypertension Qualified Code(s): I10 - Essential (primary) hypertension Is this a current diagnosis for this admission?: Yes Plan: Continue losartan and low-dose Norvasc (4) Morbid obesity with BMI of 45.0-49.9, adult Is this a current diagnosis for this admission?: Yes Plan: Patient had been advised about lifestyle modifications is will help out also with sleep apnea (5) Sleep apnea Qualifiers: Sleep apnea type: obstructive Qualified Code(s): G47.33 - Obstructive sleep apnea (adult) (pediatric) Is this a current diagnosis for this admission?: Yes Plan: Patient will be allowed to use home CPAP. Recommended to have singh recalibrated to see us at this may need to be changed (6) Diastolic CHF Qualifiers: Heart failure chronicity: acute Qualified Code(s): I50.31 - Acute diastolic (congestive) heart failure Is this a current diagnosis for this admission?: Yes Plan: Will decrease Lasix IV and will continue losartan and Norvasc - Time Time Spent with patient: 15-24 minutes Medications reviewed and adjusted accordingly: Yes Anticipated discharge: Home Within: within 24 hours - Inpatient Certification Based on my medical assessment, after consideration of the patient's comorbidities, presenting symptoms, or acuity I expect that the services needed warrant INPATIENT care.: Yes I certify that my determination is in accordance with my understanding of Medicare's requirements for reasonable and necessary INPATIENT services [42 CFR 412.3e].: Yes Medical Necessity: Need Close Monitoring Due to Risk of Patient Decompensation, Need For Continuous Telemetry Monitoring
[2017-09-14] MEDS: FUROSEMIDE INJ/PF 20 MG/2 ML SDV IV SCH (18:09)
[2017-09-14] MEDS: ATORVASTATIN CALCIUM 80 MG TABLET PO SCH (22:07)
[2017-09-15] MEDS: HEPARIN SOD (PORCINE) 5,000 UNIT/ML 1 ML SYRINGE SUBCUT SCH ×2 (05:41→13:16)
[2017-09-15] MEDS: FUROSEMIDE INJ/PF 20 MG/2 ML SDV IV SCH (05:41)
[2017-09-15] MEDS ORDERED: REGADENOSON INJ 0.4 MG/5 ML DISP.SYRIN IV ONE (12:09)
[2017-09-15] MEDS ORDERED: AMINOPHYLLINE INJ/PF 250 MG/10 ML SDV IV ONE (12:09)
[2017-09-15] MEDS: DOCUSATE SODIUM 100 MG CAPSULE PO SCH (12:11)
[2017-09-15] MEDS: ASPIRIN 81 MG TABLET, ENT COATED PO SCH (12:12)
[2017-09-15] MEDS: ACETAMINOPHEN 325 MG TABLET PO PRN (12:12)
--- NOTE | 2017-09-15 12:43 | DRAGON STRESS TEST REPORT ---
INTRAVENOUS LEXISCAN CARDIOLITE STRESS TEST USING SINGLE PHOTON EMMISION COMPUTERIZED TOMOGRAPHIC. DATE OF PROCEDURE: September 15, 2017, INDICATION : Chest pain CARDIAC RISK FACTORS: None mentioned in the request form RESTING EKG: Sinus rhythm without any baseline ST-T wave changes STRESS EKG: No significant changes noted with LexiScan bolus REASON FOR TERMINATION: Protocol. PROCEDURE REPORT: Baseline heart rate 60 beats per minute with blood pressure of 153/88. Patient had no significant complaints. Heart rate at 2 minutes post bolus 78 with a blood pressure of 162/80. 3 minutes post bolus heart rate 72 with blood pressure of 148/78. No significant EKG changes were noted. Patient had no significant complaints during the procedure or postprocedure. Patient injected with Aminophyllin 75 mg at 3 minutes or later after Lexiscan bolus. CONCLUSIONS: Normal EKG and hemodynamic response to IV LexiScan. NUCLEAR DATA: At rest the patient was given 15.52 millicuries of technetium 99 sestamibi injected intravenously. As per protocol rest gated SPECT images were obtained. On day of stress test, the patient was given intravenous LexiScan at a dose of 0.4 mg in 5 mL intravenously, followed by flush with normal saline. Subsequently the stress dose of 46.6 millicuries of technetium 99 sestamibi was injected intravenously. As per protocol stress gated images were obtained. NUCLEAR INTERPRETATION: Both raw and processed data were used for interpretation. Visual, qualitative, computer-generated quantitative data was used. There was good myocardial uptake of technetium compound. Motion artifact and soft tissue attenuations were noted. Increased visceral uptake was noted. No definitive areas of transient perfusion defect noted, No definitive areas of fixed perfusion defect or scars noted. EKG gated imaging showed LV EF at 57 %, rest and stress gated EF similar visually. T. I D. ratio was 1.02. Lung heart ratio noted to be within normal limits 0.40. No significant extracardiac and abnormal radiotracer activities were noted. RV free wall uptake was noted to be increased. Overall slight increased pulmonary uptake also noted. IMPRESSION: Also refer to comments under nuclear interpretation. Also test results needs to be interpreted in the context of pretest probability. 1. No definitive areas of transient perfusion defect noted. 2. There is no definitive scintigraphic evidence of myocardial infarction/scar. 3. EKG gated imaging shows left ventricular ejection fraction of approx. 57 %. 4. Clinical correlation requested as occasionally single vessel disease or balanced ischemia could be missed. In approximately 10% of the cases Lexiscan may not cause adequate vasodilatory stress. RECOMMENDATIONS: Aggressive risk factor modification and medical management. Further evaluation may be needed if continued symptoms or other high risk indicators are noted on clinical evaluation. Close cardiology follow-up is also recommended. Clinical correlation with echocardiogram derived ejection fraction. Inability to exercise by itself can lead to increased cardiovascular event risks. Consider cardiology consultation and or follow-up if clinically indicated. I am available for cardiology evaluation and consultation if requested by the tinner helper, unless patient already has a railroad hand. MAIK
[2017-09-15 12:46] VITALS: BP 129/72
[2017-09-15] MEDS ORDERED: AMLODIPINE BESYLATE 2.5 MG TABLET PO SCH (14:00)
[2017-09-15] MEDS ORDERED: LOSARTAN POTASSIUM 50 MG TABLET PO ONE (14:00)
[2017-09-15] MEDS ORDERED: AMLODIPINE BESYLATE 5 MG TABLET PO SCH (14:00)
--- NOTE | 2017-09-15 17:22 | PDOC DISCHARGE SUMMARY ---
General - Admit/Disc Date/PCP Admission Date/Primary Care Provider: 09/13/17 17:28 JAYSHREE MULLIGAN MD Discharge Date: 09/15/17 - Discharge Diagnosis (1) Diastolic CHF Is this a current diagnosis for this admission?: Yes (2) Chest pain Is this a current diagnosis for this admission?: Yes (3) Cough Is this a current diagnosis for this admission?: Yes (4) HTN (hypertension) Is this a current diagnosis for this admission?: Yes (5) Morbid obesity with BMI of 45.0-49.9, adult Is this a current diagnosis for this admission?: Yes (6) Sleep apnea Is this a current diagnosis for this admission?: Yes - Additional Information Resuscitation Status: Full Code Discharge Diet: Cardiac Discharge Activity: Activity As Tolerated Prescriptions: Amlodipine Besylate [Norvasc 5 mg Tablet] 5 mg PO DAILY #30 tablet Losartan Potassium [Cozaar 50 mg Tablet] 100 mg PO DAILY #60 tablet Home Medications: Atorvastatin Calcium [Lipitor 20 mg Tablet] 20 mg PO QHS 09/13/17 Hydrochlorothiazide [Hydrodiuril 25 mg Tablet] 25 mg PO DAILY 09/13/17 Amlodipine Besylate [Norvasc 5 mg Tablet] 5 mg PO DAILY #30 tablet 09/15/17 Aspirin [Ecotrin 81 mg EC Tablet] 81 mg PO DAILY tabec 09/15/17 Losartan Potassium [Cozaar 50 mg Tablet] 100 mg PO DAILY #60 tablet 09/15/17 History of Present Illness History of Present Illness: SANJEEV BROWN is a 67 year old maleCenter to emergency room accompanied by family members and complains of having shortness of breath for several days. Patient also has been complaining of nonproductive cough for some time. Today he experienced some chest pressure along with shortness of breath and prompted to come to be evaluated. Patient admits to some having a history of high blood pressure hyperlipidemia and sleep apnea. He states that he uses the CPAP machine faithfully at night.Due to comorbidities are service was contacted and prompted to admit for further management Hospital Course Hospital Course: Patient was admitted to telemetry unit. There were no cardiac dysrhythmias. Troponin was trended and negative. Patient underwent nuclear stress test on the day of discharge which was negative. Patient was place on intravenous furosemide with further improvement of shortness of breath, cough and chest pressure. Echocardiogram demonstrated a grade 2 diastolic dysfunction. We discontinued Toprol-XL and instead was placed on Norvasc and Losartan. Recommend primary care provider to follow up response. Patient was advised to continue HCTZ. We also advised patient to follow-up with primary care provider for the purpose of rechecking calibration of CPAP machine as his presentation related both to diastolic dysfunction as well as due to sleep apnea. Since patient had achieved maximum benefit of hospitalization stay and was stable prompted to discharge. Physical Exam Vital Signs: Temp Pulse Resp BP Pulse Ox 98.0 F 62 16 129/79 H 100 09/15/17 04:00 09/15/17 04:00 09/15/17 04:00 09/15/17 04:00 09/15/17 04:00 Intake & Output 09/14/17 09/15/17 09/16/17 06:59 06:59 06:59 Intake Total 685 Output Total 3080 1925 Balance -3080 -1240 Weight 112.7 kg General appearance: PRESENT: cooperative, morbidly obese Head exam: PRESENT: atraumatic, normocephalic Eye exam: PRESENT: conjunctiva pink, EOMI, PERRLA Ear exam: PRESENT: normal external ear exam, TM's normal bilaterally Mouth exam: PRESENT: moist, neck supple Neck exam: PRESENT: full ROM. ABSENT: JVD, lymphadenopathy, tenderness Respiratory exam: PRESENT: clear to auscultation amor. ABSENT: tachypnea, unlabored, wheezes Cardiovascular exam: PRESENT: RRR. ABSENT: diastolic murmur, systolic murmur Vascular exam: PRESENT: normal capillary refill GI/Abdominal exam: PRESENT: normal bowel sounds, soft. ABSENT: tenderness Extremities exam: PRESENT: full ROM. ABSENT: clubbing, joint swelling, pedal edema Musculoskeletal exam: PRESENT: ambulatory Neurological exam: PRESENT: alert, awake, oriented to person, oriented to place , oriented to time, oriented to situation, CN II-XII grossly intact Psychiatric exam: PRESENT: appropriate affect, normal mood Skin exam: PRESENT: intact, normal color Results Laboratory Results: 09/14/17 04:05 09/14/17 04:05 09/13/17 09/14/17 22:19 04:05 Troponin I < 0.012 < 0.012 Impressions: Chest X-Ray 09/13/17 13:29 IMPRESSION: NO SIGNIFICANT RADIOGRAPHIC FINDING IN THE CHEST. Chest/Abdomen CTA 09/13/17 15:11 IMPRESSION: No PE. No acute findings. Plan Discharge Plan: Discharge home Time Spent: Less than 30 Minutes
[2017-09-16] MEDS ORDERED: LOSARTAN POTASSIUM 50 MG TABLET PO SCH (10:00)
== END 2017-09-15 13:35 | disposition home or self-care (01) | DRG 293 ==
LOC: ER 12:40 → EH 17:28 → OBSVTOIN 17:28 → 4S 09-14 10:57
PROVIDERS: ADMIT Emergency Medicine; ATTEND Emergency Medicine
DX: I11.0 Hypertensive heart disease with heart failure (principal); I50.31 Acute diastolic (congestive) heart failure; R07.81 Pleurodynia; E78.5 Hyperlipidemia, unspecified; G47.33 Obstructive sleep apnea (adult) (pediatric); E66.01 Morbid (severe) obesity due to excess calories; Z87.891 Personal history of nicotine dependence; Z68.35 Body mass index [BMI] 35.0-35.9, adult
CPT/HCPCS: 36415; 71046; 71275; 78452; 80048; 80053; 82550; 82553; 83880; 84484; 85025; 85379; 93005; 93010; 93017; 93306; 99285; A9500; G0378; J0280; J1644; J1940; J2785; J7620; Q9969